=== PATIENT | female | born 1950 | race Caucasian/White ===

== ENCOUNTER 2016-12-03 09:32 | Emergency (ER) | payer MEDICARE ==
[2016-12-03 09:32] VITALS: BMI 21.9
[2016-12-03] MEDS ORDERED: TDAP Vaccine 0.5 mL Syr IM ONE (10:08)
--- NOTE | 2016-12-03 10:12 | ED PDOC ---
Arrival/HPI - General Historian: Patient - History of Present Illness Time/Duration: Prior to Arrival Context: Street - General Chief Complaint: Trauma Time Seen by Provider: 12/03/16 10:06 - History of Present Illness Narrative History of Present Illness (Text): 12/03/16 10:08 This 66 yo female with pmh htn, presents to this ED with her daughter and son, c /o right supra-orbital injury, aleft anterior knee pain, and left great toe pain x PULL UP HAND. Patient stated while walking on side walk, she tripped on uneven surface. She fell down on the ground "hard" according to her daughter. Patient denies recent illness, sob, cp, abdominal pain, urinary symptoms, dizziness, diplopia, dysarthria, or abnormal (Chula Bob) Past Medical History - Provider Review Nursing Documentation Reviewed: Yes - Infectious Disease Hx of Infectious Diseases: None - Past Medical History Past Medical History: No Previous - Cardiac Hx Cardiac Disorders: Yes Hx Hypertension: Yes - Pulmonary Hx Respiratory Disorders: No - Neurological Hx Neurological Disorder: No - HEENT Hx HEENT Disorder: No - Hematological/Oncological Hx Blood Transfusions: No - Integumentary Hx Dermatological Disorder: No - Musculoskeletal/Rheumatological Hx Herniated Disk: No - Gastrointestinal Hx Constipation: No - Genitourinary/Gynecological Hx Genitourinary Disorders: No - Psychiatric Hx Psychophysiologic Disorder: Yes Hx Depression: Yes Hx Panic Disorder: No Hx Substance Use: No - Surgical History Hx Section: Yes (x2) - Anesthesia Hx Anesthesia: Yes Hx Anesthesia Reactions: No - Suicidal Assessment Feels Threatened In Home Enviroment: No Family/Social History - Physician Review Nursing Documentation Reviewed: Yes Family/Social History: Other (non-contributory) Smoking Status: Never Smoked Hx Alcohol Use: No Hx Substance Use: No Hx Substance Use Treatment: No Allergies/Home Meds Allergies/Adverse Reactions: Allergies No Known Allergies Allergy (Verified 12/03/16 09:36) Home Medications: Home Meds Medication Instructions Recorded Confirmed Enalapril/Hydrochlorothiazide 20 mg PO DAILY 12/03/16 12/03/16 [Enalapril-Hctz 10-25 mg Tablet] Escitalopram Oxalate [Lexapro] 10 mg PO DAILY 12/03/16 12/03/16 Review of Systems - Review of Systems Constitutional: Normal. absent: Fatigue, Weight Change, Fevers, Night Sweats Eyes: Normal. absent: Vision Changes, Photophobia, Eye Pain ENT: Normal Respiratory: Normal. absent: SOB, Cough, Sputum, Wheezing Cardiovascular: Normal. absent: Chest Pain, Palpitations, HAMEED, Syncope Gastrointestinal: Normal. absent: Abdominal Pain, Nausea, Vomiting Genitourinary Female: Normal. absent: Dysuria, Frequency, Hematuria, Vaginal Bleeding, Vaginal Discharge Musculoskeletal: Other (see hpi). absent: Back Pain, Neck Pain Skin: Other (left knee abrasion) Neurological: Normal. absent: Headache, Dizziness, Focal Weakness, Gait Changes , Speech Changes, Facial Droop, Disequilibrium, Seizure Endocrine: Normal Hemo/Lymphatic: Normal Psychiatric: Normal Physical Exam Temperature: Afebrile Blood Pressure: Normal Pulse: Regular Respiratory Rate: Normal Appearance: Positive for: Well-Appearing, Non-Toxic, Comfortable Pain Distress: None Mental Status: Positive for: Alert and Oriented X 3 - Systems Exam Head: Present: Normocephalic, Laceration ((+) right supraorbital laceration, approx. 2.7 cm), Other (no raccoon sign. No farrell sign) Pupils: Present: PERRL, Other (no hyphema) Extroacular Muscles: Present: EOMI. No: Entrapment Conjunctiva: Present: Normal Ears: Present: Normal, NORMAL TM, Normal Canal, Other (no hemotympanum). No: Erythema, TM Bulging, Fluid, TM Perf Mouth: Present: Moist Mucous Membranes Pharnyx: Present: Normal. No: ERYTHEMA, EXUDATE, TONSILS ENLARGED, Peritonsilar Swelling, Uvular Deviation, Muffled/Hoarse Voice, Strider Nose (External): Present: Atraumatic Nose (Internal): Present: Normal Inspection. No: Septal Hematoma Neck: Present: Normal Range of Motion, Trachea Midline. No: Meningeal Signs, MIDLINE TENDERNESS, Paraspinal Tenderness Respiratory/Chest: Present: Clear to Auscultation, Good Air Exchange. No: Respiratory Distress, Accessory Muscle Use, Wheezes, Retracting, Rhonchi, Tender to Palpation Cardiovascular: Present: Regular Rate and Rhythm, Normal S1, S2. No: Murmurs Abdomen: Present: Normal Bowel Sounds. No: Tenderness, Distention, Peritoneal Signs Back: Present: Normal Inspection. No: CVA Tenderness, Midline Tenderness, Paraspinal Tenderness, Pain with Leg Raise Upper Extremity: Present: Normal Inspection, Normal ROM, NORMAL PULSES, Neurovascularly Intact, Capillary Refill < 2s. No: Cyanosis, Edema Lower Extremity: Present: NORMAL PULSES, Normal ROM, Neurovascularly Intact, Capillary Refill < 2 s, Other ((+) mild left anterior knee tenderness with superficial abrasion). No: Edema, CALF TENDERNESS, Lanie's Sign, Swelling, Erythema, Deformity, Temperature Abnormalties Neurological: Present: GCS=15, CN II-XII Intact, Speech Normal, Motor Func Grossly Intact, Normal Sensory Function, Normal Cerebellar Funct, Gait Normal ( but with mild pain on left knee) Skin: Present: Warm, Dry, Normal Color, Abrasion. No: Rashes Psychiatric: Present: Alert, Oriented x 3, Normal Insight, Normal Concentration Vital Signs Temp Pulse Resp BP Pulse Ox 12/03/16 11:32 98.6 F 70 17 160/72 H 100 12/03/16 09:41 98.7 F 77 18 168/77 H 97 Medical Decision Making Re-evaluation Time: 11:30 Reassessment Condition: Re-examined, Improved ED Course and Treatment: 12/03/16 11:30 Re-evaluation. Patient feels better. Discussed results and plan with patient who expresses understanding. All questions answered and there is agreement with the plan to discharge home with instructions. Patient stable for discharge. Return if symptoms persist or worsen. Patient presents to ED with family for evaluation of mechanical fall, right facial laceration with ecchymosis, left anterior knee pain with abrasion, and left great toe pain. Denies loc, n/v, dizziness, or abnormal gait. CT head was negative, Left knee and left great toe x-rays were no fracture. Patient is ambulatory without neuro focal deficits. Patient feel well, and facial laceration repaired. Patient was give ABX, and tetanus shot. Patient left ED with normal gait, without assistance. (Ch[place] Bob) I was available for consultation during PA evaluation. The chart was reviewed by me, and I agree with disposition. The documented history was done by the physician track supervisor. The documented physical exam was done by the physician track supervisor. The documented procedures were done by the physician track supervisor. (Alberto Sifuentes) - RAD Interpretation Narrative RAD Interpretations (Text): 12/03/16 11:30 Accession No. : [id number] Patient Name / ID : BATSHEVA Reese [id number] Exam Date : 12/03/2016 10:39:39 ( Approved ) Study Comment : Sex / Age : F / 66Y Creator : KATHLEEN BALTAZAR MD Dictator : KATHLEEN BALTAZAR MD Meteorology Professor : Fashion Intern : KATHLEEN BALTAZAR MD Approver2 : Report Date : 12/03/2016 11:15:05 My Comment : PROCEDURE: Left Knee Radiographs. HISTORY: Pain. COMPARISON: None. FINDINGS: BONES: There is no acute displaced fracture or bone destruction. Bone alignment is normal. There is diffuse bone demineralization. JOINTS: Normal. No osteoarthritis. JOINT EFFUSION: None. OTHER FINDINGS: None. IMPRESSION: No acute fracture or dislocation. 12/03/16 11:33 Accession No. : [id number] Patient Name / ID : BATSHEVA Reese [id number] Exam Date : 12/03/2016 10:43:08 ( Approved ) Study Comment : Sex / Age : F / 66Y Creator : KATHLEEN BALTAZAR MD Dictator : KATHLEEN BALTAZAR MD Meteorology Professor : Fashion Intern : KATHLEEN BALTAZAR MD Approver2 : Report Date : 12/03/2016 11:16:16 My Comment : PROCEDURE: Radiographs of the left great toe. TECHNIQUE:: AP radiograph of the left foot, with oblique and lateral view of the left great toe. COMPARISON: None. FINDINGS: BONES: There is no acute displaced fracture or bone destruction. Bone alignment is normal. There is diffuse bone demineralization. . JOINTS: There is mild degenerative osteoarthrosis in the 1st MTP joint. SOFT TISSUES: Normal. OTHER FINDINGS: None. IMPRESSION: No acute fracture or dislocation. 12/03/16 11:34 Accession No. : [id number] Patient Name / ID : BATSHEVA RICKETTS / [id number] Exam Date : 12/03/2016 10:24:46 ( Approved ) Study Comment : Sex / Age : F / 66Y Creator : KATHLEEN BALTAZAR MD Dictator : KATHLEEN BALTAZAR MD Meteorology Professor : Fashion Intern : KATHLEEN BALTAZAR MD Approver2 : Report Date : 12/03/2016 10:49:17 My Comment : PROCEDURE: CT HEAD WITHOUT CONTRAST. HISTORY: head trauma COMPARISON: None available. TECHNIQUE: Axial computed tomography images were obtained through the head/brain without intravenous contrast. Radiation dose: Total exam DLP = 725.84 mGy-cm. This CT exam was performed using one or more of the following dose reduction techniques: Automated exposure control, adjustment of the mA and/or kV according to patient size, and/or use of iterative reconstruction technique. FINDINGS: HEMORRHAGE: No intracranial hemorrhage. BRAIN: There are mild chronic microangiopathic changes. There is no mass, mass effect or abnormal extra-axial fluid collection. VENTRICLES: There is mild age-related global parenchymal volume loss and proportionate enlargement of the ventricles and cortical sulci. CALVARIUM: There is no calvarial fracture or extracranial soft tissue swelling. PARANASAL SINUSES: There are aerosolized secretions in the left maxillary sinus. The remaining paranasal sinuses are predominantly clear. MASTOID AIR CELLS: There is small amount of fluid in the left mastoid tip. The right mastoid air cells are clear. OTHER FINDINGS: None. IMPRESSION: No acute intracranial abnormality. Mild chronic microangiopathic changes and mild age-related global parenchymal volume loss. (Cuhla Bob) Radiology Orders: 12/03/16 10:06 HEAD W/O CONTRAST [CT] Stat 12/03/16 10:07 FOOT LEFT GREAT TOE ROUTINE [RAD] Stat KNEE WITH PATELLA LEFT 3 VIEW [RAD] Stat - Medication Orders Current Medication Orders: Discontinued Medications Tetanus/Reduced Diphtheria/Acell Pertussis (Boostrix Vaccine Inj) 0.5 ml IM .ONCE ONE Stop: 12/03/16 10:09 Last Admin: 12/03/16 10:52 Dose: 0.5 ml MAR Immunization Data Document 12/03/16 10:52 AB (Rec: 12/03/16 10:54 AB [id number]) Immunization Data Vaccine Lot Number [id number] Vaccine Expiration Date 11/23/18 Site Given Left Deltoid Route Intramuscular Disposition/Present on Arrival - Present on Arrival Any Indicators Present on Arrival: No History of DVT/PE: No History of Uncontrolled Diabetes: No Urinary Catheter: No History of Decub. Ulcer: No History Surgical Site Infection Following: None - Disposition Have Diagnosis and Disposition been Completed?: Yes Disposition Time: 11:35 Patient Plan: Discharge - Disposition Diagnosis: Traumatic injury of head, Facial laceration, Knee pain, Toe pain, Abrasion Disposition: HOME/ ROUTINE Condition: IMPROVED Discharge Instructions (ExitCare): Head Injury (ED), Abrasion (ED), Knee Pain ( ED), Facial Laceration (ED) Additional Instructions: Call private doctor for follow up visit in 1-2 days. Take medication as instructed. Return to emergency if symptoms worsen. Prescriptions: Cephalexin [cephalexin] 500 mg PO QID #20 cap Forms: [employer] (Uzbek)
--- NOTE | 2016-12-03 10:50 | CT ---
PROCEDURE: CT HEAD WITHOUT CONTRAST. HISTORY: head trauma COMPARISON: None available. TECHNIQUE: Axial computed tomography images were obtained through the head/brain without intravenous contrast. Radiation dose: Total exam DLP = 725.84 mGy-cm. This CT exam was performed using one or more of the following dose reduction techniques: Automated exposure control, adjustment of the mA and/or kV according to patient size, and/or use of iterative reconstruction technique. FINDINGS: HEMORRHAGE: No intracranial hemorrhage. BRAIN: There are mild chronic microangiopathic changes. There is no mass, mass effect or abnormal extra-axial fluid collection. VENTRICLES: There is mild age-related global parenchymal volume loss and proportionate enlargement of the ventricles and cortical sulci. CALVARIUM: There is no calvarial fracture or extracranial soft tissue swelling. PARANASAL SINUSES: There are aerosolized secretions in the left maxillary sinus. The remaining paranasal sinuses are predominantly clear. MASTOID AIR CELLS: There is small amount of fluid in the left mastoid tip. The right mastoid air cells are clear. OTHER FINDINGS: None. IMPRESSION: No acute intracranial abnormality. Mild chronic microangiopathic changes and mild age-related global parenchymal volume loss.
--- NOTE | 2016-12-03 11:16 | RAD ---
PROCEDURE: Left Knee Radiographs. HISTORY: Pain. COMPARISON: None. FINDINGS: BONES: There is no acute displaced fracture or bone destruction. Bone alignment is normal. There is diffuse bone demineralization. JOINTS: Normal. No osteoarthritis. JOINT EFFUSION: None. OTHER FINDINGS: None. IMPRESSION: No acute fracture or dislocation.
--- NOTE | 2016-12-03 11:17 | RAD ---
PROCEDURE: Radiographs of the left great toe. TECHNIQUE:: AP radiograph of the left foot, with oblique and lateral view of the left great toe. COMPARISON: None. FINDINGS: BONES: There is no acute displaced fracture or bone destruction. Bone alignment is normal. There is diffuse bone demineralization. . JOINTS: There is mild degenerative osteoarthrosis in the 1st MTP joint. SOFT TISSUES: Normal. OTHER FINDINGS: None. IMPRESSION: No acute fracture or dislocation.
[2016-12-03 12:54] VITALS: BP 160/72; PULSE 70; RESP 17; TEMP 98.6; O2SAT 100
== END 2016-12-03 12:11 | disposition home or self-care (01) ==
LOC: ED 09:32
DX: S01.81XA Laceration without foreign body of other part of head, initial encounter (principal); S80.212A Abrasion, left knee, initial encounter; W01.0XXA Fall on same level from slipping, tripping and stumbling without subsequent striking against object, initial encounter; Y93.01 Activity, walking, marching and hiking; Y92.480 Sidewalk as the place of occurrence of the external cause; M25.562 Pain in left knee; M79.675 Pain in left toe(s); Z23 Encounter for immunization